=== PATIENT | female | born 1950 | race Caucasian/White ===

== ENCOUNTER 2019-01-29 09:23 | Inpatient (IN) ==
[2019-01-29] MEDS: NS 1,000 ML IV SCH (12:15)
[2019-01-29 12:23] LABS: URINE SOURCE CLEAN CATCH
[2019-01-29 12:26] LABS: BILIRUBIN URINE NEGATIVE (NEGATIVE); BLOOD URINE NEGATIVE (NEGATIVE); COLOR YELLOW; GLUCOSE URINE NEGATIVE (NEGATIVE); KETONE URINE NEGATIVE (NEGATIVE); LEUKOCYTES URINE NEGATIVE (NEGATIVE); NITRITE URINE NEGATIVE (NEGATIVE); PH URINE 6.5; PROTEIN URINE NEGATIVE (NEGATIVE); SP GRAVITY URINE 1.013; TURBIDITY URINE CLEAR (CLEAR); UR EPITHELIAL CELLS <10 /HPF (<10); URINE BACTERIA NEGATIVE /HPF; URINE RBC <10 /HPF (<10); URINE WBC <10 /HPF (<10); UROBILINOGEN URINE NORMAL (NORMAL)
[2019-01-29 13:10] LABS: BASO# 0.04 X1000 (0.0-0.2); BASO% 0.4 % (0.0-0.8); EOS# 0.33 X1000 (0.0-0.7); EOS% 3.6 % (0.0-10.0); HEMATOCRIT 39.9 % (37.0-47.0); HEMOGLOBIN 13.5 g/dL (12.0-16.0); IMM GRAN# 0.02 X1000 (0.0-0.04); IMM GRAN% 0.2 % (0.0-0.5); LYMPH# 2.59 X1000 (1.2-3.4); MCH 30.8 PG (27-31); MCHC 33.8 g/dL (33-37); MCV 90.9 FL (81-99); MONO# 0.41 X1000 (0.11-0.59); MONO% 4.4 % (1.7-9.3); MPV 10.5 FL (7.4-10.4); NEUT# 5.85 X1000 (1.4-6.5); NEUT% 63.4 % (42.2-75.2); PLT 391 X1000 (130-400); RBC 4.39 XMIL (4.2-5.4); RDW 13.8 % (11.5-14.5); WBC 9.24 X1000 (4.8-10.8)
[2019-01-29 13:36] LABS: ALB/GLOB RATIO 1.7; ALBUMIN 4.5 g/dL (3.5-5.0); CALCIUM 9.4 mg/dL (8.8-10.2); CREATININE 1.4 mg/dL (0.5-0.9); POTASSIUM 3.6 mmol/L (3.5-5.1); TOTAL BILIRUBIN 0.38 mg/dL (0.20-1.00); TOTAL PROTEIN 7.2 g/dL (6.3-8.3)
[2019-01-29] MEDS ORDERED: VENTOLIN HFA INH PRN (18:34)
[2019-01-29] MEDS: HUMULIN R SUBQ SCH (22:54)
[2019-01-30] MEDS: HUMULIN R SUBQ SCH ×4 (06:29→23:02)
--- NOTE | 2019-01-30 07:29 | HISTORY AND PHYSICAL ---
CHIEF COMPLAINT: Right leg claudication for the last 1 year. Right-sided abdominal pain with eating. History of gallstone disease. HISTORY OF PRESENT ILLNESS: She is a 68-year-old white female, used to see Dr. Gillis, was evaluated in my office with the above symptoms. She has known history of gallstone disease, previously asymptomatic, now having intermittent belly pain, right leg claudication. Taking Tramadol. DEV is 0.4 on the right side, with distal SFA occlusion on the right side and poor downstream. The patient is unable to do the CT aortogram with runoff as an outpatient due to elevated creatinine, and the procedure was canceled twice. The patient was advised to be hospitalized for further workup of symptomatic gallstone disease and PID on the right side. The patient was started on IV fluids, and creatinine came back 1.4. I spoke to Dr. Marroquin about the surgical evaluation based on these tests. PAST MEDICAL HISTORY: History of gallstones, COPD, type 2 diabetes, hyperlipidemia, WEBSTER, PAF, and right SFA occlusion, DEV 0.4. PAST SURGICAL HISTORY: section. MEDICATIONS: Amiodarone 200 daily, Pletal 100 p.o. b.i.d., Eliquis 5 mg p.o. b.i.d., folic acid 1 mg daily, Klonopin 1 mg b.i.d., Lasix 40 daily, metformin 500 p.o. b.i.d., Crestor 40 mg daily, tramadol 50 b.i.d. ALLERGIES: Not known. SOCIAL HISTORY: , 1 kid. Retired from [employer]. Lives in [place]. Socially drinks alcohol. Smoking 1 pack a day since age 25. No drug abuse. FAMILY HISTORY: Father at the age of 69 from diabetic complications, mom at 69 from stroke and diabetes. HEALTH MAINTENANCE: Vaccines were declined. Mammography in 2019. Colonoscopy in 2014. REVIEW OF SYSTEMS: HEENT: No headache. No vision problem. No earache. No sore throat. Neck: No goiter. No lymphadenopathy. No bruit. Cardiopulmonary: No chest pain, shortness of breath, PND, orthopnea. GI: No nausea, vomiting. Abdominal pain on the right side, and claudication in the right leg. : No history of hesitancy, frequency, dysuria. No swelling of the legs. No joint pains. Neurologic: No focal symptoms or weakness. PHYSICAL EXAMINATION: VITAL SIGNS: Temperature is 97 degrees, pulse is 85, respirations 18, blood pressure 114/68. HEENT: Atraumatic, normocephalic. Pupils equal, react to light. TMs are normal. Nose and throat within normal limits. NECK: Supple. No lymphadenopathy. No goiter. CHEST: Bilateral air entry. HEART: Heart sounds are regular. ABDOMEN: Belly is soft. No signs of peritonitis. Slightly tender in the right upper quadrant area. EXTREMITIES: No signs of gangrene. Decreased pulses. NEUROLOGIC: No obvious neurological deficits. INVESTIGATIONS: CBC: White cell count 9.2, hematocrit 39, platelets 391,000. Sodium 140, potassium 3.6, BUN 18, creatinine 1.4, glucose 133. Urinalysis is clear. ASSESSMENT AND PLAN: A 68-year-old white female, admitted to the hospital with: 1. Symptomatic gallstone disease from Dr. Gillis's office before. Will check the ultrasound. If she has pain upon eating, consider laparoscopic cholecystectomy. 2. Chronic kidney disease. Hold Lasix. Intravenous fluids. 3. Peripheral arterial disease on the right leg. Will get a CT angiogram. Will check these tests, and will consult with Dr. Marroquin. 4. Diabetes. Will follow up on sliding scale insulin coverage. Continue on Diovan. 5. History of hyperlipidemia, on Crestor. 6. Chronic anxiety, on Klonopin. 7. Chronic obstructive pulmonary disease. Advised to quit smoking. 8. History of paroxysmal atrial fibrillation. Follow up on electrocardiogram. Last stress test was done by Dr. Ruiz. Ejection fraction reported 40%. 9. Last mammogram on 09/13/2018 is negative. 10. ischemic cardiomyopathy. Continue on present medications to include aspirin, valsartan. Left heart catheterization was done on 04/18/2017, which showed right coronary artery disease about 70%. 11. History of congestive heart failure due to ischemic cardiomyopathy with judicious use of intravenous fluids. Will follow up. cc: Lawrence Ingram MD MTDD
[2019-01-30 07:33] LABS: CREATININE 1.3 mg/dL (0.5-0.9)
[2019-01-30] MEDS ORDERED: DIOVAN PO SCH (09:00)
[2019-01-30] MEDS: COZAAR PO SCH (10:22)
[2019-01-30] MEDS: CORDARONE PO SCH (10:22)
[2019-01-30] MEDS: ASPIRIN PO SCH (10:22)
[2019-01-30] MEDS: PLETAL PO SCH ×2 (10:22→19:59)
[2019-01-30] MEDS: CRESTOR PO SCH (10:22)
[2019-01-30] MEDS: FOLIC ACID PO SCH (10:22)
--- NOTE | 2019-01-30 15:26 | Diag Imaging Result Doc PS360 ---
US ABDOMEN-COMPLETE - 01/30/2019 INDICATION: RUQ PAIN COMPARISON: None FINDINGS: There is a shadowing stone in the gallbladder. No gallbladder distention or inflammation. The liver, pancreas, spleen, and both kidneys are normal. Common bile duct measures 3 mm. Aorta, IVC, and main portal vein are patent. IMPRESSION: Gallstone in the gallbladder. Otherwise no acute disease. Electronically signed by Gwyn Schmitz 01/30/2019 3:24 PM
[2019-01-30] MEDS: NS 1,000 ML IV SCH ×3 (15:29→23:01)
--- NOTE | 2019-01-30 15:37 | Diag Imaging Result Doc PS360 ---
CT ANGIOGRAM AORTA W/RUNOFF - 01/29/2019 INDICATION: RIght Ischemic LEG TECHNIQUE: Axial CT images were obtained after administering intravenous contrast. Three-dimensional angiographic images were generated. COMPARISON: 06/08/2016 FINDINGS: Stable stone in the gallbladder. Stable bulky left adrenal gland. Stable severe diverticulosis throughout the colon. Otherwise soft tissues are unchanged. There is severe vascular disease of the abdominal aorta. There is severe stenosis at the origins of the superior mesenteric artery and both renal arteries with about 75% narrowing. No aneurysm. On the right side, there is heavy disease throughout the iliac artery systems. No severe stenosis. The common femoral artery is diseased but also grossly patent. The deep femoral artery demonstrates moderately severe disease proximally with about 60% narrowing. The superficial femoral artery demonstrates multifocal severe disease with about 75% narrowing. The popliteal artery is completely occluded. There is collateral reconstitution at the level of the knee joint. The anterior tibial artery is completely occluded. The posterior tibial artery runs off to the ankle and foot. On the left side, there is heavy disease of the iliac artery systems. There is severe stenosis of the internal iliac artery with about 80% narrowing. The common and deep femoral artery is diseased but patent. The superficial femoral artery demonstrates severe stenosis proximally and distally with about 75% narrowing. The popliteal artery is also moderately diseased with about 50% narrowing. The anterior and posterior tibial arteries occlude in the mid calf. The peroneal artery runs off to the ankle and foot. IMPRESSION: 1. Heavy vascular disease as described above. 2. Chronic soft tissue abnormalities in the abdomen are stable from prior. This exam was performed using automated exposure control, adjustment of mA or kV according to patient size, and/or use of iterative reconstruction technique Electronically signed by Gwyn Schmitz 01/30/2019 3:34 PM
[2019-01-30] MEDS: KLONOPIN PO PRN (19:59)
--- NOTE | 2019-01-30 22:56 | GENERAL SURGERY CONSULTATION ---
DATE: 01/30/2019 HISTORY OF PRESENT ILLNESS: Ms. Zuniga is a 68-year-old patient of Dr. Ingram who has 100-yard claudication in the right leg. Her DEV on the right is 0.4. She had a CTA apparently today revealing a right SFA and popliteal occlusion. PAST MEDICAL HISTORY: Pertinent for cholelithiasis, COPD, type 2 diabetes, hyperlipidemia, paroxysmal atrial fibrillation and WEBSTER. PAST SURGICAL HISTORY: section. MEDICATIONS: Include amiodarone, Pletal, Eliquis, folic acid, Klonopin, Lasix, metformin, Crestor, tramadol. ALLERGIES: She has no known drug allergies. SOCIAL HISTORY: She is . She is retired. She drinks alcohol. She smokes a pack a day. Denies illicit drug use. FAMILY HISTORY: Pertinent for diabetes, stroke. REVIEW OF SYSTEMS: Negative in other subsystems except as noted above. PHYSICAL EXAMINATION: Vital Signs: She is afebrile, heart rate 69, blood pressure 131/65. Lungs: Bilateral breath sounds. Heart: Regular rate and rhythm. Abdomen: Soft and nontender. Extremities: Femoral pulses are present. I do not palpate pedal pulses. Neurologic: She is awake, alert and oriented. LABORATORY DATA: White count is 9000, hemoglobin 13.5, hematocrit 39, BUN 20, creatinine 1.3. ASSESSMENT: Right superficial femoral artery and popliteal occlusive disease. PLAN: Endovascular approach with atherectomy balloon angioplasty. Hopefully, we can open this up and restore her normal perfusion to her calf. We will tentatively plan for the . cc: MD Lawrence Aquino MD
--- NOTE | 2019-01-31 04:26 | PROGRESS NOTE ---
DATE: 01/30/2019 SUBJECTIVE: The patient is dilly dally about going for the test or not. She is afraid her kidneys will jeopardize, and she continues to have pain in the right leg. Some marked improvement on cilostazol, and waiting for CT angiogram. She also has abdominal pain, which is not concerning at this time. She has been scheduled for CT arteriogram with runoff and ultrasound of the abdomen. I spoke to Dr. Marroquin. OBJECTIVE: Vital Signs: Temperature 97 degrees, pulse 70, and blood pressure 121 x 70. HEENT: Exam within normal limits. Neck: Supple. Chest: Bilateral air entry. Heart: Sounds are regular. Abdomen: Belly is soft and nontender. Good bowel sounds, and no signs of gangrene. LABORATORY: Labs reviewed. Creatinine 1.3. ASSESSMENT AND PLAN: 1. Peripheral arterial disease. The right is symptomatic. Follow up on CT runoff. Continue IV fluids. 2. Paroxysmal atrial fibrillation on Cordarone 200 mg daily along with Eliquis 5 mg p.o. b.i.d. 3. Ischemic cardiomyopathy with EF 45%, and very judicious use of IV fluids. We will cut down to 50 mL/h and hold the Lasix. 4. Type 2 diabetes since she is getting the contrast. We will hold on metformin. We will do sliding scale with insulin coverage. 5. Continue aspirin. 6. Tobacco abuse. Quit smoking. 7. Chronic anxiety on Klonopin as needed. 8. Hyperlipidemia on lovastatin 40 mg daily. 9. Hypertension on losartan 25 mg daily. We will discontinue the losartan. Gallstones are currently asymptomatic. We will continue to monitor. Because of that, I stopped the Eliquis. 10. We will follow up on these labs. TIME SPENT: Level of documentation is 35 minutes. cc: Lawrence Ingram MD
[2019-01-31] MEDS: NS 1,000 ML IV SCH ×2 (05:10→17:47)
[2019-01-31] MEDS: HUMULIN R SUBQ SCH ×4 (06:16→21:16)
[2019-01-31] MEDS: FOLIC ACID PO SCH (09:39)
[2019-01-31] MEDS: ASPIRIN PO SCH (09:40)
[2019-01-31] MEDS: COZAAR PO SCH (09:40)
[2019-01-31] MEDS: CRESTOR PO SCH (09:40)
[2019-01-31] MEDS: CORDARONE PO SCH (09:40)
[2019-01-31] MEDS: PLETAL PO SCH ×3 (09:41→21:16)
[2019-01-31] MEDS: KEFZOL 1 GM/D5W 1 GM/50 ML IVPB IV SCH ×2 (09:55→18:17)
[2019-01-31] MEDS: KLONOPIN PO PRN (19:58)
--- NOTE | 2019-01-31 20:10 | GENERAL SURGERY PROGRESS NOTE ---
DATE: 01/31/2019 SUBJECTIVE: Ms. Zuniga is doing generally well. ASSESSMENT AND PLAN: We will plan superficial femoral artery atherectomy with balloon angioplasty for 02/01. I have discussed the benefits and risks with her, the possibility that we could not accomplish our plan. She understands that and she agrees to proceed. cc: MD Lawrence Aquino MD
[2019-02-01] MEDS: KEFZOL 1 GM/D5W 1 GM/50 ML IVPB IV SCH ×3 (01:30→18:31)
[2019-02-01] MEDS: NS 1,000 ML IV SCH ×3 (01:30→23:09)
[2019-02-01] MEDS: HUMULIN R SUBQ SCH ×4 (06:45→20:18)
[2019-02-01 06:55] LABS: HEMOGLOBIN 12.1 g/dL (12.0-16.0); MCH 31.2 PG (27-31); MCHC 33.6 g/dL (33-37); MCV 92.8 FL (81-99); MPV 10.6 FL (7.4-10.4); RBC 3.88 XMIL (4.2-5.4); RDW 14.1 % (11.5-14.5); WBC 6.98 X1000 (4.8-10.8)
--- NOTE | 2019-02-01 07:14 | PROGRESS NOTE ---
DATE: 01/31/2019 SUBJECTIVE: The patient is not offering any complaints in the abdominal pain, ultrasound gallstones. Still symptomatic in the right leg with claudication symptoms. I appreciate Dr. Marroquin's consult. PHYSICAL EXAMINATION: Vital Signs: Temperature is 97 degrees, pulse 78, vitals are stable. HEENT: Within normal limits. Neck: Supple. Chest: Clear. Heart: Heart sounds are regular. Abdomen: Belly is soft, nontender. Neurologic: No obvious deficits. INVESTIGATIONS: Creatinine is 1.3. ASSESSMENT AND PLAN: 1. Peripheral arterial disease in the right leg. Dr. Marroquin is going to do angioplasty, possible stent tomorrow, and continue intravenous fluids at 50 mL an hour. 2. Gallstones, symptomatic. Will address the issue later on. The patient has been on hold on the Eliquis. Continue on Cordarone. Reconcile home medications. Discussed the plan of care with the patient. LEVEL OF DOCUMENTATION: 25 minutes. cc: Lawrence Ingram MD
--- NOTE | 2019-02-01 07:14 | EKG Report ---
Test Performed on : 02/01/2019 06:59:54 AM Test Reason : cp Blood Pressure : / mmHG Vent. Rate : 076 BPM Atrial Rate : 076 BPM P-R Int : 188 ms QRS Dur : 090 ms QT Int : 414 ms P-R-T Axes : 080 -08 040 degrees QTc Int : 465 ms Normal sinus rhythm. Nonspecific ST abnormality Abnormal ECG When compared with ECG of 28-APR-2017 07:20, fusion complexes are no longer present premature ventricular complexes. are no longer present Nonspecific T wave abnormality no longer evident in Lateral leads Confirmed by Juan Jose DUNN, P.J.M ([id number]) on 02/02/2019 5:37:30 PM
[2019-02-01 08:25] LABS: AGAP 14; BUN 19 mg/dL (8-22); CALCIUM 8.8 mg/dL (8.8-10.2); CHLORIDE 107 mmol/L (98-107); COSMO 285; CREATININE 1.3 mg/dL (0.5-0.9); GLUCOSE 121 mg/dL (70-104); POTASSIUM 4.1 mmol/L (3.5-5.1); SODIUM 141 mmol/L (136-145); TCO2 20 mmol/L (25-35)
[2019-02-01] MEDS: COZAAR PO SCH (08:57)
[2019-02-01] MEDS: FOLIC ACID PO SCH (10:44)
[2019-02-01] MEDS: PLETAL PO SCH ×2 (10:44→20:49)
[2019-02-01] MEDS: ASPIRIN PO SCH (10:44)
[2019-02-01] MEDS: CRESTOR PO SCH (10:44)
[2019-02-01] MEDS: CORDARONE PO SCH (10:44)
[2019-02-01] MEDS ORDERED: ROBINUL ONE (10:48)
[2019-02-01] MEDS ORDERED: XYLOCAINE-MPF 2% ONE ×2 (10:48→14:18)
[2019-02-01] MEDS ORDERED: DIPRIVAN 1% ONE ×2 (10:48→14:18)
[2019-02-01] MEDS ORDERED: HEPARIN ONE ×3 (11:22→14:32)
[2019-02-01] MEDS ORDERED: NS 2,000 ML ONE (11:23)
[2019-02-01] MEDS ORDERED: KETAMINE ONE ×2 (12:07→14:42)
[2019-02-01] MEDS ORDERED: SODIUM CHLORIDE 0.9% 10 ML ONE (12:12)
[2019-02-01] MEDS ORDERED: EPINEPHRINE ONE (12:12)
[2019-02-01] MEDS ORDERED: ZEMURON ONE (12:14)
[2019-02-01] MEDS ORDERED: DECADRON ONE (12:16)
[2019-02-01] MEDS ORDERED: ZOFRAN ONE (12:16)
[2019-02-01] MEDS ORDERED: OFIRMEV 1000 MG/ISOTONIC SOLN 1,000 MG/100 ML BOTTLE ONE (12:16)
[2019-02-01] MEDS ORDERED: HEPARIN (DOSE) ONE (12:27)
[2019-02-01 12:29] LABS: URINE SOURCE CATH
[2019-02-01 12:35] LABS: BILIRUBIN URINE NEGATIVE (NEGATIVE); BLOOD URINE NEGATIVE (NEGATIVE); COLOR YELLOW; GLUCOSE URINE NEGATIVE (NEGATIVE); KETONE URINE NEGATIVE (NEGATIVE); LEUKOCYTES URINE NEGATIVE (NEGATIVE); NITRITE URINE NEGATIVE (NEGATIVE); PROTEIN URINE NEGATIVE (NEGATIVE); SP GRAVITY URINE 1.012; TURBIDITY URINE CLEAR (CLEAR); UROBILINOGEN URINE NORMAL (NORMAL)
[2019-02-01 12:38] LABS: UR EPITHELIAL CELLS <10 /HPF (<10); URINE BACTERIA NEGATIVE /HPF; URINE RBC <10 /HPF (<10); URINE WBC <10 /HPF (<10)
[2019-02-01] MEDS ORDERED: EPHEDRINE ONE (13:10)
[2019-02-01] MEDS ORDERED: NS 500 ML ONE ×2 (13:47→15:22)
[2019-02-01] MEDS ORDERED: NEO-SYNEPHRINE ONE (13:53)
[2019-02-01 14:00] LABS: HEMATOCRIT 26.3 % (37.0-47.0); HEMOGLOBIN 8.7 g/dL (12.0-16.0)
[2019-02-01] MEDS ORDERED: QUELICIN (DOSE) ONE (14:18)
[2019-02-01] MEDS ORDERED: LR 1,000 ML ONE (14:18)
[2019-02-01] MEDS ORDERED: NS 1,000 ML ONE ×2 (14:32→16:30)
[2019-02-01] MEDS ORDERED: KEFZOL ONE (14:32)
[2019-02-01] MEDS ORDERED: MARCAINE 0.25% PF/EPI 1:200,000 ONE (14:35)
[2019-02-01] MEDS ORDERED: VERSED ONE (14:46)
--- NOTE | 2019-02-01 15:29 | EKG Report ---
Test Performed on : 02/01/2019 3:24:34 PM Test Reason : ischemia Blood Pressure : / mmHG Vent. Rate : 076 BPM Atrial Rate : 076 BPM P-R Int : 168 ms QRS Dur : 094 ms QT Int : 412 ms P-R-T Axes : -66 005 056 degrees QTc Int : 463 ms Unusual P axis, possible ectopic atrial rhythm. Abnormal ECG When compared with ECG of 01-FEB-2019 06:59, (Unconfirmed) Ectopic atrial rhythm. has replaced Sinus rhythm. Confirmed by Juan Jose DUNN, P.J.M ([id number]) on 02/02/2019 5:39:06 PM
[2019-02-01 16:21] LABS: POTASSIUM 4.2 mmol/L (3.5-5.1)
[2019-02-01 16:30] LABS: CALCIUM 7.3 mg/dL (8.8-10.2)
[2019-02-01 16:57] LABS: HEMATOCRIT 36.4 % (37.0-47.0); HEMOGLOBIN 11.9 g/dL (12.0-16.0)
[2019-02-01] MEDS ORDERED: NORCO-10 PO PRN (17:32)
[2019-02-01] MEDS ORDERED: DILAUDID IV PRN (17:32)
[2019-02-01] MEDS: KEFZOL 1 GM in NS 50 ML IV SCH (18:18)
[2019-02-01] MEDS ORDERED: NS 1,000 ML IV SCH (19:32)
[2019-02-01] MEDS: NEO-SYNEPHRINE 50 MG in NS 250 ML IV SCH ×2 (20:14→23:09)
--- NOTE | 2019-02-01 21:36 | OPERATIVE NOTE ---
PROCEDURE DATE: 02/01/2019 NAME OF OPERATION: 1. Left common femoral artery access with ultrasound guidance. 2. Right superficial femoral artery access with ultrasound guidance. 3. Right leg arteriogram. 4. Failed attempt at crossing the chronic total occlusion. SURGEON: Chinmay Marorquin MD. BOGGER OPERATOR: Maeve. PREOPERATIVE DIAGNOSIS: Right superficial femoral artery and popliteal occlusion of the right calf with claudication. POSTOPERATIVE DIAGNOSIS: Right superficial femoral artery and popliteal occlusion of the right calf with claudication secondary to a 22 cm occlusion from the distal superficial femoral artery through the popliteal. DESCRIPTION OF PROCEDURE: Satisfactory general anesthesia was achieved. The abdomen and both groins and the right leg were prepped and draped in a sterile fashion. We began with ultrasound of the right common femoral. We attempted an antegrade approach but could not get the wire to pass and finally had to abort that attempt and hold pressure. I then turned my attention to the left groin and with ultrasound guidance accessed the left common femoral artery in a retrograde approach, passed the wire followed by a 7-Nepalese sheath. We then passed the Glidewire up into the aorta followed by a Contra-2 catheter. We reformed the catheter and engaged the right common iliac, then passed a long stiff Glidewire over the horn down into the SFA. We then switched to a short 7-Nepalese sheath in the left groin for a 45 cm sheath. We shot an arteriogram showing occlusion in the mid SFA with reconstitution past the knee in the distal popliteal really in the tibioperoneal trunk. It was about a 22 cm occlusion. We then passed a long trailblazer over the horn but we really could not get any traction and could not advance the wire or the Trailblazer through the occlusion. So then I ultrasounded the right superficial femoral and accessed it with ultrasound guidance, passed a 7-Nepalese sheath. I failed to mention we had given the patient 5000 units of heparin at the beginning of the case. We accessed the right superficial femoral with an antegrade approach and that way we would have more push power across the chronic total occlusion. So, we passed the short Glidewire to the occlusion in the 80 cm Trailblazer, and we progressed through the popliteal down to the distal popliteal. I thought we were in the distal lumen, but we have failed to gain access to the distal lumen in the tibioperoneal trunk. So after a few attempts to manipulate the Trailblazer, we could not get into the distal lumen and aborted further attempts. So, we withdrew our wire and trailblazer. We used Mynx closure on the right SFA, and we then switched the long 7-Nepalese sheath for short 1 in the left groin and also used a Mynx according to manufacture's specifications in the left groin. We held pressure at each puncture site for 5 minutes. Each seemed hemostatic we placed pressure dressings in the right SFA, the right common femoral and the left common femoral. She tolerated procedure satisfactorily. Estimated blood loss was 25 mL. The contrast used was 54 mL. cc: MD Lawernce Aquino MD
[2019-02-01] MEDS ORDERED: LEVOPHED 8 MG in D5 1/2 NS 250 ML IV SCH (22:00)
--- NOTE | 2019-02-01 22:41 | OPERATIVE NOTE ---
PROCEDURE DATE: 02/01/2019 PROCEDURE: Exploration of left common femoral artery with suture repair of bleeding puncture site. SURGEON: Chinmay Marroquin MD. ASSISTANTS: Emy and Ayanna. PREOPERATIVE DIAGNOSIS: Bleeding left femoral artery puncture site with expanding hematoma. POSTOPERATIVE DIAGNOSIS: Bleeding left femoral artery puncture site with expanding hematoma. INDICATIONS: This is a 68-year-old, who is postop femoral artery access who has developed expanding hematoma in the left groin with a fall in hemoglobin to 8. She is complaining about her left thigh. We will take her back to the operating room urgently for exploration and repair of the puncture site. DESCRIPTION OF PROCEDURE: After satisfactory general endotracheal anesthesia was achieved, the abdomen and both groins were prepped and draped in a sterile fashion. We made a vertical incision in the left groin. Dissected through the subcutaneous tissue. We then entered the area of the hematoma. There was active bleeding. We put a finger over the bleeding site to stop the bleeding. We then dissected out the artery and then used a 4-0 Prolene [id number] stitch to close the bleeding point. This completely stop the bleeding. We then copiously irrigated out the cavity where the hematoma had been. Hemostasis was otherwise satisfactory. We placed a Justin drain within the cavity bringing it out inferior to the incision and secured it to the skin with 2- 0 silk. We then closed the subcutaneous tissue just over the muscle with a running 2-0 Polysorb. We then closed the subcutaneous tissue superficially with interrupted 3-0 Polysorb. The skin was closed with annelise. A sterile dressing was applied. She tolerated this satisfactorily, was sent to the recovery room in satisfactory condition. cc: MD Lawrence Aquino MD
[2019-02-02] MEDS: KEFZOL 1 GM in NS 50 ML IV SCH ×4 (00:17→16:56)
[2019-02-02] MEDS: NS 1,000 ML IV SCH ×4 (02:52→15:18)
[2019-02-02] MEDS: NEO-SYNEPHRINE 50 MG in NS 250 ML IV SCH ×3 (03:25→15:11)
[2019-02-02] MEDS: HUMULIN R SUBQ SCH ×5 (05:56→20:24)
[2019-02-02 05:59] LABS: BASO# 0.01 X1000 (0.0-0.2); HEMATOCRIT 30.3 % (37.0-47.0); IMM GRAN% 0.5 % (0.0-0.5); LYMPH# 1.14 X1000 (1.2-3.4); LYMPH% 5.3 % (20.5-51.1); MCH 30.1 PG (27-31); MCV 91.3 FL (81-99); MONO# 0.53 X1000 (0.11-0.59); MONO% 2.4 % (1.7-9.3); MPV 11.5 FL (7.4-10.4); NEUT# 19.93 X1000 (1.4-6.5); NEUT% 91.8 % (42.2-75.2); PLT 241 X1000 (130-400); RBC 3.32 XMIL (4.2-5.4); RDW 15.1 % (11.5-14.5); WBC 21.71 X1000 (4.8-10.8)
--- NOTE | 2019-02-02 06:00 | PROGRESS NOTE ---
DATE: 02/01/2019 SUBJECTIVE: The patient is seen twice and this morning the patient is going for atherectomy on the right leg by Dr. Marroquin. Apparently she has excessive oozing and requiring some crystalloids and blood transfusion. She did receive 3 units of packed RBCs. She is in ICU. The patient is awake, slightly confused. PHYSICAL EXAMINATION: Vital signs: Temperature is 97 degrees, blood pressure is stable. HEENT: Within normal limits. Chest: Clear. Heart: Sounds are regular. LABORATORY DATA: CBC: White cell count 6.9, hematocrit 36, platelets 296,000. Creatinine 1.0. Calcium is low. Cardiac enzymes were negative. ASSESSMENT AND PLAN: Status post right atherectomy and complicated by blood loss. The patient was on Eliquis which has been stopped almost 4 days ago, and hemodynamics are stable. Slightly increase the fluids 80 mL/hour with vasopressors and Klonopin as needed, and we will check the labs in the morning. I appreciate Dr. Marroquin's efforts and will follow up. LEVEL OF DOCUMENTATION: 25 minutes. cc: Lawrence Ingram MD
[2019-02-02 06:34] LABS: CREATININE 1.3 mg/dL (0.5-0.9); POTASSIUM 4.4 mmol/L (3.5-5.1)
[2019-02-02 07:32] LABS: LYMPHS 6 % (21-51); MONO 3 % (1-9); SEGS 91 % (42-75)
[2019-02-02] MEDS ORDERED: CALCIUM GLUCONATE 1 GM in NS 50 ML IV ONE (08:00)
[2019-02-02] MEDS: CRESTOR PO SCH (09:45)
[2019-02-02] MEDS: FOLIC ACID PO SCH (09:45)
[2019-02-02] MEDS: CORDARONE PO SCH (09:45)
[2019-02-02] MEDS: ASPIRIN PO SCH (09:45)
[2019-02-02] MEDS: PLETAL PO SCH (09:46)
[2019-02-02] MEDS: COZAAR PO SCH (09:46)
[2019-02-02 16:42] LABS: BASO# 0.01 X1000 (0.0-0.2); HEMATOCRIT 25.8 % (37.0-47.0); HEMOGLOBIN 8.4 g/dL (12.0-16.0); IMM GRAN# 0.08 X1000 (0.0-0.04); IMM GRAN% 0.3 % (0.0-0.5); LYMPH# 1.46 X1000 (1.2-3.4); MCH 29.8 PG (27-31); MCHC 32.6 g/dL (33-37); MCV 91.5 FL (81-99); MONO# 1.25 X1000 (0.11-0.59); MONO% 5.2 % (1.7-9.3); NEUT# 21.37 X1000 (1.4-6.5); NEUT% 88.5 % (42.2-75.2); PLT 220 X1000 (130-400); RBC 2.82 XMIL (4.2-5.4); WBC 24.17 X1000 (4.8-10.8)
[2019-02-02 16:56] LABS: LYMPHS 8 % (21-51); MONO 4 % (1-9); SEGS 88 % (42-75)
--- NOTE | 2019-02-02 19:02 | GENERAL SURGERY PROGRESS NOTE ---
DATE: 02/02/2019 She is postop day 1 after percutaneous attempt at opening of her right SFA popliteal occlusion. We were unsuccessful in doing that. She suffered a complication with bleeding from the left femoral stick, and required a left femoral exploration and suture repair. This morning, she is doing generally well. Her blood pressure is 93 on a low dose Lorenzo-Synephrine. Heart rate is 70. Her respiratory rate is 12. She is awake, alert, and oriented. Her hemoglobin is a 10, hematocrit 30, white count is 21,000. BUN 21 and creatinine 1.3. I discussed with her the findings at surgery. I discussed with her the fact that we will have to see her in followup if we are going to relieve her right SFA obstruction and relieve her claudication, but that would be another plan which would include possibly a bypass. So, our goal now is to get her off Lorenzo and get her back on the floor in preparation for discharge. cc: MD Lawrence Aquino MD
[2019-02-03] MEDS: KEFZOL 1 GM in NS 50 ML IV SCH ×3 (01:20→19:20)
[2019-02-03] MEDS: NEO-SYNEPHRINE 50 MG in NS 250 ML IV SCH ×2 (01:52→08:58)
--- NOTE | 2019-02-03 06:45 | PROGRESS NOTE ---
DATE: 02/02/2019 SUBJECTIVE: The patient is anxious to get out of the ICU. Blood pressure is still tenuous requiring IV fluids as well as Lorenzo-Synephrine. Intraoperative findings noted. The patient is off Eliquis for a while and nevertheless, requiring 3 units of packed RBC, resulting hypocalcemia. REVIEW OF SYSTEMS: None reported. PHYSICAL EXAMINATION: Vital Signs: Stable. HEENT: Within normal limits. Physical exam, no change. CARLITOS drain is still there. James was placed. ASSESSMENT AND PLAN: 1. Right leg claudication. Unable to do the atherectomy angioplasty. 2. Hematoma in the left groin with excessive blood loss anemia. 3. Hypertension. 4. Repeat CBC at 4 o'clock and hemodynamic support slowly wean off. Continue to monitor in ICU. Appreciated Dr. Marroquin's help, and we will follow. LEVEL OF DOCUMENTATION: 25 minutes. cc: Lawrence Ingram MD MTDD
[2019-02-03] MEDS: NS 1,000 ML IV SCH ×3 (06:48→21:43)
[2019-02-03] MEDS: HUMULIN R SUBQ SCH ×4 (06:49→21:00)
[2019-02-03] MEDS: CORDARONE PO SCH (08:58)
[2019-02-03] MEDS: FOLIC ACID PO SCH (08:58)
[2019-02-03] MEDS: ASPIRIN PO SCH (08:58)
[2019-02-03] MEDS: CRESTOR PO SCH (08:58)
[2019-02-03 10:10] LABS: BASO# 0.01 X1000 (0.0-0.2); BASO% 0.1 % (0.0-0.8); HEMATOCRIT 28.4 % (37.0-47.0); HEMOGLOBIN 9.6 g/dL (12.0-16.0); IMM GRAN# 0.05 X1000 (0.0-0.04); IMM GRAN% 0.3 % (0.0-0.5); LYMPH# 1.45 X1000 (1.2-3.4); LYMPH% 8.1 % (20.5-51.1); MCH 30.7 PG (27-31); MCHC 33.8 g/dL (33-37); MCV 90.7 FL (81-99); MONO# 1.05 X1000 (0.11-0.59); MONO% 5.9 % (1.7-9.3); MPV 10.9 FL (7.4-10.4); NEUT# 15.32 X1000 (1.4-6.5); NEUT% 85.6 % (42.2-75.2); PLT 160 X1000 (130-400); RBC 3.13 XMIL (4.2-5.4); RDW 15.5 % (11.5-14.5); WBC 17.88 X1000 (4.8-10.8)
[2019-02-03 10:12] LABS: BANDS 2 % (0-1); LYMPHS 18 % (21-51); MONO 2 % (1-9); SEGS 78 % (42-75)
[2019-02-03 10:17] LABS: CALCIUM 7.6 mg/dL (8.8-10.2); CREATININE 1.1 mg/dL (0.5-0.9)
--- NOTE | 2019-02-03 10:29 | Diag Imaging Result Doc PS360 ---
EXAM: CHEST-1 VIEW INDICATION: SOB TECHNIQUE: One view COMPARISON: 08/21/2018 FINDINGS: There are vague interstitial and likely airspace infiltrates seen throughout both lungs. This probably represents pulmonary edema +/- pneumonia. There is no discrete pleural fluid collection or pneumothorax. The cardiac silhouette is unremarkable. The central vasculature range be slightly prominent suggesting mild pulmonary venous congestion. IMPRESSION: Bilateral vague interstitial and airspace infiltrates as described. Electronically signed by Leon Grady 02/03/2019 10:27 AM
[2019-02-03] MEDS ORDERED: LASIX IV ONE (14:44)
--- NOTE | 2019-02-03 20:57 | GENERAL SURGERY PROGRESS NOTE ---
DATE: 02/03/2019 SUBJECTIVE: Heart rate is 76. Blood pressure 117/80. She is awake and alert and eating. Intake 4646 output 4082. Drain is only 57 mL. PLAN: The plan is to remove her drain and stop her DO today in hopes that we can move her out to a regular room. cc: MD Lawrence Aquino MD
--- NOTE | 2019-02-03 22:22 | PROGRESS NOTE ---
DATE: 02/03/2019 SUBJECT: The patient is anxious to get out of the ICU. The patient did receive 2 units of packed RBCs. Blood pressure stable. Slightly wheezing. EXAMINATION: Temperature is 98 degrees. Vitals are stable. Blood pressure is still dropping.HEENT: Within normal limits. Chest: Wheezing. Heart: Sounds are regular. Belly: Soft, nontender. CARLITOS drain was out on the left side. INVESTIGATIONS: White cell count 17, hematocrit 28, platelet 160,000. Sodium 140, potassium 4, BUN 20, creatinine 1.1, calcium 7.6. ASSESSMENT AND PLAN: 1. Volume overload, slightly wheezing. We will give Lasix 40 mg daily. 2. Discontinue James. 3. Discontinue CARLITOS drain. 4. Unsuccessful attempt for the peripheral artery disease atherectomy on the right leg. 5. Hypotension due to acute blood-loss anemia status post 5 units of packed RBC. 6. Weaned off vasopressors. We will check the labs in the morning. 7. Hypercalcemia due to multiple transfusion. 8. Decrease intravenous fluids to 80 mL/h. LEVEL OF DOCUMENTATION: [25]. cc: Lawrence Ingram MD MTDD
[2019-02-04] MEDS: KEFZOL 1 GM in NS 50 ML IV SCH ×3 (01:30→17:05)
[2019-02-04] MEDS: NS 1,000 ML IV SCH ×2 (02:45→12:01)
[2019-02-04] MEDS: HUMULIN R SUBQ SCH ×3 (06:14→15:55)
[2019-02-04 06:36] LABS: BASO# 0.01 X1000 (0.0-0.2); BASO% 0.1 % (0.0-0.8); EOS# 0.08 X1000 (0.0-0.7); EOS% 0.7 % (0.0-10.0); HEMATOCRIT 31.3 % (37.0-47.0); HEMOGLOBIN 10.5 g/dL (12.0-16.0); IMM GRAN# 0.04 X1000 (0.0-0.04); IMM GRAN% 0.3 % (0.0-0.5); LYMPH# 1.69 X1000 (1.2-3.4); LYMPH% 14.2 % (20.5-51.1); MCH 30.3 PG (27-31); MCHC 33.5 g/dL (33-37); MCV 90.2 FL (81-99); MONO# 0.61 X1000 (0.11-0.59); MONO% 5.1 % (1.7-9.3); MPV 11.2 FL (7.4-10.4); NEUT# 9.46 X1000 (1.4-6.5); NEUT% 79.6 % (42.2-75.2); PLT 154 X1000 (130-400); RBC 3.47 XMIL (4.2-5.4); RDW 15.8 % (11.5-14.5); WBC 11.89 X1000 (4.8-10.8)
[2019-02-04 06:54] LABS: CALCIUM 8.1 mg/dL (8.8-10.2); CREATININE 1.2 mg/dL (0.5-0.9); POTASSIUM 4.2 mmol/L (3.5-5.1)
--- NOTE | 2019-02-04 08:44 | GENERAL SURGERY PROGRESS NOTE ---
DATE: 02/04/2019 Ms. Zuniga doing generally satisfactorily. She is off all Lorenzo-Synephrine now. Her heart rate is 82, blood pressure 104 systolic. Her groins look okay. Her hemoglobin is 10.5, hematocrit 31, white count 11,900. BUN 16, creatinine 1.2. The plan will be to transfer her out to a regular room. cc: MD Lawrence Aquino MD
[2019-02-04] MEDS: ASPIRIN PO SCH (08:58)
[2019-02-04] MEDS: CORDARONE PO SCH (08:58)
[2019-02-04] MEDS: CRESTOR PO SCH (08:58)
[2019-02-04] MEDS: FOLIC ACID PO SCH (08:58)
--- NOTE | 2019-02-04 11:46 | PROGRESS NOTE ---
DATE: 02/04/2019 SUBJECTIVE: The patient is moved out of ICU by Dr. Marroquin. She is off vasopressors. Hemodynamics are stable. REVIEW OF SYSTEMS: None reported. PHYSICAL EXAMINATION: Vital Signs: Temperature is 99.6 degrees, pulse 82. Vitals are stable. Saturating 95% on room air. HEENT: Within normal limits. Neck: Supple. Chest: Clear. Heart: Heart sounds are regular. Neurological: Intact. I's and O's negative -2.5 L. LABORATORY DATA: CBC: White cell count 11, hematocrit 31, platelets 154,000. Sodium 139, potassium 4.2, BUN 16, creatinine 1.2, calcium 8.1. ASSESSMENT AND PLAN: 1. Hypotension due to acute blood loss anemia, stable off vasopressors. Check the labs in the morning. Transfer to the step-down or floor. 2. Paroxysmal atrial fibrillation, on Cordarone. 3. Volume overload. Lasix 1 dose was given. 4. Chronic anxiety. 5. Chronic pain. 6. Chronic tobacco abuse. Quit smoking. 7. Elevated white cell count, reactive. Intravenous Keflex every 8 hours. Continue intravenous fluids. Decrease to 50 mL/h. Out of the bed with Physical Therapy. 8. Hyperlipidemia, on Crestor. Please see the transfer orders. LEVEL OF DOCUMENTATION: 25 minutes. cc: Lawrence Ingram MD
[2019-02-05] MEDS: HUMULIN R SUBQ SCH ×5 (00:11→20:50)
[2019-02-05] MEDS: KEFZOL 1 GM in NS 50 ML IV SCH ×3 (01:30→17:33)
[2019-02-05 05:23] LABS: BASO# 0.01 X1000 (0.0-0.2); BASO% 0.1 % (0.0-0.8); EOS# 0.09 X1000 (0.0-0.7); EOS% 0.8 % (0.0-10.0); HEMATOCRIT 30.7 % (37.0-47.0); HEMOGLOBIN 10.2 g/dL (12.0-16.0); IMM GRAN# 0.03 X1000 (0.0-0.04); IMM GRAN% 0.3 % (0.0-0.5); LYMPH# 1.38 X1000 (1.2-3.4); LYMPH% 12.7 % (20.5-51.1); MCH 30.1 PG (27-31); MCHC 33.2 g/dL (33-37); MCV 90.6 FL (81-99); MONO% 6.5 % (1.7-9.3); MPV 10.6 FL (7.4-10.4); NEUT# 8.62 X1000 (1.4-6.5); NEUT% 79.6 % (42.2-75.2); PLT 171 X1000 (130-400); RBC 3.39 XMIL (4.2-5.4); RDW 14.9 % (11.5-14.5); WBC 10.83 X1000 (4.8-10.8)
[2019-02-05 05:41] LABS: CALCIUM 7.9 mg/dL (8.8-10.2); POTASSIUM 4.3 mmol/L (3.5-5.1)
[2019-02-05] MEDS: CORDARONE PO SCH (08:28)
[2019-02-05] MEDS: ASPIRIN PO SCH (08:28)
[2019-02-05] MEDS: FOLIC ACID PO SCH (08:28)
[2019-02-05] MEDS: CRESTOR PO SCH (08:28)
[2019-02-05] MEDS: NS 1,000 ML IV SCH (11:58)
[2019-02-05] MEDS ORDERED: ZOFRAN IV PRN (16:34)
--- NOTE | 2019-02-05 21:03 | GENERAL SURGERY PROGRESS NOTE ---
DATE: 02/05/2019 Ms. Zuniga is doing generally well. Her left groin wound is fine. Her hemoglobin is 10.2. It is fine, from my perspective, for her to be discharged. She is return to see me in followup. cc: MD Lawrence Aquino MD
--- NOTE | 2019-02-05 21:21 | PROGRESS NOTE ---
DATE: 02/05/2019 SUBJECTIVE: The patient has a running low-grade fever, nausea, lack of appetite. Dr. Marroquin came by and looked at the dressing in both groin sites. Patient is able to ambulate. On IV fluids 50 mL an hour. OBJECTIVE: Vital Signs: Low-grade fever. Hemodynamics are stable. HEENT: Within normal limits. Chest: Clear. Heart: Sounds are regular. Both legs are slightly edematous. Neurologic: No neurological deficits. No signs of gangrene in both legs. INVESTIGATIONS: White cell count 10, hematocrit 30, platelets 171,000. SMA 7: Sodium 138, potassium 4.3, BUN 11, creatinine 1.0. ASSESSMENT AND PLAN: 1. Status post failed atherectomy angioplasty in the right leg. 2. Acute blood loss anemia. 3. Chronic obstructive pulmonary disease. 4. Fever, nausea. 5. The overall picture is getting better. The patient is anxious to go home, out of the bed with physical therapy, and discontinue intravenous fluids. If she is stable, will discharge in the morning. I appreciated Dr. Marroquin's input. LEVEL OF DOCUMENTATION: 25 minutes. cc: Lawrence Ingram MD
[2019-02-06] MEDS: KEFZOL 1 GM in NS 50 ML IV SCH ×3 (02:10→17:31)
[2019-02-06 05:19] LABS: BASO# 0.01 X1000 (0.0-0.2); BASO% 0.1 % (0.0-0.8); EOS# 0.09 X1000 (0.0-0.7); EOS% 0.8 % (0.0-10.0); HEMATOCRIT 29.3 % (37.0-47.0); HEMOGLOBIN 9.8 g/dL (12.0-16.0); IMM GRAN# 0.03 X1000 (0.0-0.04); IMM GRAN% 0.3 % (0.0-0.5); LYMPH# 0.83 X1000 (1.2-3.4); LYMPH% 7.4 % (20.5-51.1); MCH 30.2 PG (27-31); MCHC 33.4 g/dL (33-37); MCV 90.4 FL (81-99); MONO% 8.9 % (1.7-9.3); MPV 10.6 FL (7.4-10.4); NEUT# 9.31 X1000 (1.4-6.5); NEUT% 82.5 % (42.2-75.2); PLT 191 X1000 (130-400); RBC 3.24 XMIL (4.2-5.4); RDW 14.5 % (11.5-14.5); WBC 11.27 X1000 (4.8-10.8)
[2019-02-06 05:47] LABS: CALCIUM 8.4 mg/dL (8.8-10.2); POTASSIUM 3.8 mmol/L (3.5-5.1)
[2019-02-06] MEDS: HUMULIN R SUBQ SCH ×4 (06:19→21:53)
[2019-02-06] MEDS: CORDARONE PO SCH (08:54)
[2019-02-06] MEDS: FOLIC ACID PO SCH (08:54)
[2019-02-06] MEDS: COZAAR PO SCH (08:54)
[2019-02-06] MEDS: ASPIRIN PO SCH (08:54)
[2019-02-06] MEDS: CRESTOR PO SCH (08:54)
--- NOTE | 2019-02-06 22:27 | PROGRESS NOTE ---
DATE: 02/06/2019 SUBJECTIVE: The patient is a little bit nauseous. Eating well. Groin sites looks fine. No excessive oozing noted. OBJECTIVE: Hemodynamics are stable. Afebrile.HEENT: Within normal limits. Neck: Supple. Chest: Clear to auscultation. Heart sounds are regular. Belly is soft, nontender. No obvious deficits. INVESTIGATIONS: White cell count 11.2, hematocrit 29, platelets 191,000. Sodium 137, potassium 3.8, chloride 102, BUN 13, creatinine 1.0, glucose 127. ASSESSMENT AND PLAN: 1. Nausea is stable. Out of the bed with physical therapy. 2. Durable medical equipment for assistance for walking. 3. Acute blood loss. Better. If she is stable, we will slowly discharge in the morning, and will restart the home medicines, except Eliquis for one week, and then will follow up as an outpatient. Discussed the plan of care with the patient as well as Dr. Marroquin. cc: Lawrence Ingram MD
[2019-02-07] MEDS: KEFZOL 1 GM in NS 50 ML IV SCH ×2 (01:54→08:53)
[2019-02-07 08:05] VITALS: BP 112/63
[2019-02-07] MEDS: ASPIRIN PO SCH (08:52)
[2019-02-07] MEDS: COZAAR PO SCH (08:52)
[2019-02-07] MEDS: CORDARONE PO SCH (08:52)
[2019-02-07] MEDS: FOLIC ACID PO SCH (08:52)
[2019-02-07] MEDS: CRESTOR PO SCH (08:53)
--- NOTE | 2019-02-08 18:49 | DISCHARGE SUMMARY ---
ADMISSION DATE: 01/29/2019 DISCHARGE DATE: 02/07/2019 DISCHARGING DIAGNOSIS: Right leg claudication, DEV 0.4 with long segment stress image occlusion of right common femoral, superficial femoral artery with a poor downstream. SECONDARY DIAGNOSES: 1. Gallstone disease. 2. Chronic obstructive pulmonary disease. 3. Type 2 diabetes. 4. Hyperlipidemia. 5. Nonalcoholic steatohepatitis. 6. Paroxysmal atrial fibrillation. 7. Chronic anxiety. CONSULTS: Dr. Marroquin. PROCEDURES: 1. CT aortogram with runoff. It was delayed due to chronic kidney disease. Creatinine 1.6. Patient was given IV fluids and followup hydration. The test was completed with a chronically occluded common femoral SFA on the right side. 2. Attempted atherectomy angioplasty by Dr. Marroquin. Please see his operative notes and unable to do the procedures due to chronically occluded tight lesion in the long segment on the right side. 3. Transfusion of packed RBC, five units. BRIEF HISTORY: Please see the H and P that was done 01/29/2018. In brief, she is a 69-year-old white female who was admitted to the hospital with right leg claudication pain for which the patient has been taking tramadol that has not been addressed since 2017 and DEV [address]. Repeat CT aortogram consistent with occluded SFA with a poor downstream. The patient is not able to fully benefit with medical management with Pletal. The procedure was not able to be done due to chronic kidney disease. As a result, admitted to the hospital for IV fluids and further management. HOSPITAL COURSE: 1. The patient also has gallstones, a little bit of pain at this time, she wants to wait for laparoscopic cholecystectomy. 2. PAD on the right leg. Unable to succeed due to constraints of the procedure. It was complicated by excessive blood loss for which the patient is requiring transfusion. The patient had multiple blood transfusions to maintain hematocrit around 30. The patient has some bruising in the left groin. There were no signs of active bleeding noted in both groin sites. 3. Chronic kidney disease. Creatinine is around 1.5. 4. Type 2 diabetes, on metformin. 5. Chronic anxiety, on Klonopin. 6. COPD. Continues to smoke. Advised to quit smoking. 7. History of paroxysmal atrial fibrillation with ischemic cardiomyopathy. Noncritical right coronary artery disease by last cardiac catheterization was done 04/18/2017. Continue on aspirin and losartan. Ejection fraction 40 to 45 percent. The patient is anxious to go home. Patient is refusing all the vaccinations. LABORATORY DATA: White cell count 11.2, hematocrit 29.3, platelets 191,000. Sodium 137, potassium 3.8, chloride 102, BUN 13, creatinine 1.0, glucose 127, calcium 8.4. DISCHARGE INSTRUCTIONS: 1. Aspirin 81 mg daily. 2. ProAir HFA q 6 hours as needed. 3. Folic acid 1 mg daily. 4. Lasix 40 daily. 5. Metformin 500 p.o. b.i.d. 6. Resume the blood pressure medicines after one week, which includes losartan 25 daily, Pletal 100 p.o. b.i.d. 7. Klonopin 1 mg as needed. 8. Crestor 40 mg daily. 9. Pletal 100 p.o. b.i.d. 10. Will resume Eliquis for atrial fibrillation down the line, after one week 5 mg p.o. b.i.d. 11. Amiodarone 200 daily. 12. Follow up in my office next week. cc: MD Renea Salomon MD
== END 2019-02-07 10:46 | disposition home or self-care (01) | DRG 264 ==
LOC: OBSVTOIN 09:23 → DIRADM 09:23 → INTOOBSV 09:23 → 4N 09:45 → ICU 02-01 17:31 → 1N 02-04 11:07
PROVIDERS: ADMIT Internal Medicine; ATTEND Internal Medicine